=== PATIENT | female | born 1995 | race Caucasian/White ===

== ENCOUNTER 2020-11-06 15:23 | Emergency (ER) | payer OTHER ==
[~2020-11-06] VITALS: Ht 165.1 cm; Wt 44.0 kg
[2020-11-06] MEDS ORDERED: PROTONIX20 MG (15:30)
[2020-11-06] MEDS ORDERED: CARAFATE1 GM PO (20:02)
[2020-11-06] MEDS ORDERED: ZOFRAN8 MG PO (20:02)
[2020-11-06] MEDS ORDERED: PEPCID AC20 MG PO (20:02)
== END 2020-11-06 20:33 | disposition home or self-care (01) ==
LOC: ER 15:23
DX: K29.60 Other gastritis without bleeding (principal); Z20.828 Contact with and (suspected) exposure to other viral communicable diseases